=== PATIENT | female | born 1945 | race Caucasian/White ===

== ENCOUNTER 2019-05-08 11:02 | Outpatient (CLI) | payer MEDICARE, BC ==
--- NOTE | 2019-05-08 11:16 | RAD ---
EXAM: Chest 2 views: HISTORY: Chest pain COMPARISON: None. FINDINGS: There is a normal-sized cardiomediastinal silhouette. There is no evidence of consolidation, mass, or pleural effusion. The bones are unremarkable. IMPRESSION: No evidence of acute cardiopulmonary disease
== END 2019-05-08 11:03 | disposition home or self-care (01) ==
LOC: BICRAD 11:02
PROVIDERS: ATTEND Family Medicine
DX: R07.9 Chest pain, unspecified (principal)
CPT/HCPCS: 71046

== ENCOUNTER 2019-05-29 08:26 | Day surgery (SDC) | payer MEDICARE, BC ==
[2019-05-28 15:22] VITALS: BMI 23.3
[2019-05-29 08:42] LABS: #Basophils 0.1 thou/uL (0.0-0.2); #Eosinphils 0.1 thou/uL (0.0-0.7); #Lymphocytes 1.2 thou/uL (1.20-3.40); #Monocytes 0.6 thou/uL (0.11-0.59); #Neutrophils 3.5 thou/uL (1.40-6.50); %Eosinophils 1.8 % (0.0-10.0); %Lymphocytes 21.9 % (21.0-51.0); %Monocytes 11.1 % (0.0-10.0); %Neutrophils 64.2 % (42.0-75.0); Hemoglobin 13.7 g/dL (12.0-16.0); Mean Corpuscular HGB CONC 33.8 g/dL (32.0-36.0); Mean Corpuscular Hemoglobin 30.4 pg (27.0-31.0); Mean Platelet Volume 7.7 fL (7.4-10.4); Platelet Count 266 thou/uL (130-400); Red Blood Cell (RBC) Count 4.51 mill/uL (4.20-5.40); White Blood Cell (WBC) Count 5.4 thou/uL (4.8-10.8)
[2019-05-29 08:51] LABS: PTT 26.3 SEC (22.9-36.1); Prothrombin Time 12.7 SEC (12.0-14.7)
--- NOTE | 2019-05-29 12:02 | CT ---
CT-GUIDED LIVER CYST DRAINAGE: CLINICAL HISTORY: Symptomatic hepatic cysts. PROCEDURE: Informed consent was obtained. The patient was escorted to the procedural suite and placed in the sup ine position. The patient's abdomen was prepped and draped in standard sterile technique. Topical anesthesia with buffered 1% lidocaine was performed. Two separate large sized hepatic cysts were drai ralph, totaling approximately 500 cc of cyst aspirate. A large cyst remains at the hepatic dome, underlying the hemidiaphragm, however at this time given the extensive envelopment by the overlying h emidiaphragm, this cyst is not drained. No procedural complications. IMPRESSION: Technically successful aspiration of 2 separate, large cysts of the liver, totaling approximately 500 cc of aspirate. Transcribed Date/Time: 05/29/2019 12:21 PM
[2019-05-29 12:29] VITALS: BP 180/98; TEMP 97.6
== END 2019-05-29 12:45 | disposition home or self-care (01) ==
LOC: CT 08:26
PROVIDERS: ATTEND Physician Assistant Medical
PROC: 0F903ZX Drainage of Liver, Percutaneous Approach, Diagnostic (ICD-10-PCS; principal; 2019-05-29)
DX: K76.89 Other specified diseases of liver (principal); I10 Essential (primary) hypertension; E07.9 Disorder of thyroid, unspecified; E78.00 Pure hypercholesterolemia, unspecified; Z79.82 Long term (current) use of aspirin; Z79.899 Other long term (current) drug therapy
CPT/HCPCS: 36415; 47010; 77012; 85025; 85610; 85730

== ENCOUNTER 2020-04-26 10:07 | Outpatient (CLI) | payer MEDICARE, BC ==
--- NOTE | 2020-04-26 10:37 | BD ---
EXAM: Bone densitometry using DEXA HISTORY: 75 yo female. Screening for postmenopausal osteoporosis FINDINGS: L1--bone mineral density 1.019 g/sq cm; T score 0.3 ; Z score 2.4 L2--bone mineral density 1.072 g/sq cm; T score 0.4 ; Z score 2.7 L3--bone mineral density 1.163 g/sq cm; T score 0.7 ; Z score 3.2 L4--bone mineral density 1.165 g/sq cm; T score 0.9 ; Z score 3.5 Total L1-L4--bone mineral density 1.111 g/sq cm; T score 0.6 ; Z score 2.9 Left femoral neck--bone mineral density0.713; T score -1.2 ; Z score 0.8 Total proximal left femur--bone mineral density 0.948; T score 0.1 ; Z score 1.8 The 10 year fracture risk for a major osteoporotic fracture is 9.9% and for a hip fracture is 1.6%. IMPRESSION: Osteopenia
== END 2020-04-26 10:08 | disposition home or self-care (01) ==
LOC: BICMAMMO 10:07
PROVIDERS: ATTEND Family Medicine
DX: M85.852 Other specified disorders of bone density and structure, left thigh (principal)
CPT/HCPCS: 77080